=== PATIENT | female | born 1945 | race Caucasian/White ===

== ENCOUNTER → 2016-09-15 | Outpatient (CLI) | payer OTHER | LOC: FIMAGING 11:44 | PROVIDERS: ATTEND Surgery | DX: E21.0 Primary hyperparathyroidism (principal); D49.7 Neoplasm of unspecified behavior of endocrine glands and other parts of nervous system | CPT/HCPCS: 78070; A9500 ==

== ENCOUNTER → 2016-09-27 | Outpatient (CLI) | payer OTHER | LOC: FIMAGING 07:29 | PROVIDERS: ATTEND Surgery | PROC: CW5 Nuclear Medicine, Anatomical Regions, Nonimaging Nuclear Medicine Probe (ICD-10-PCS; principal; 2016-09-27) | DX: Z01.818 Encounter for other preprocedural examination (principal); D35.1 Benign neoplasm of parathyroid gland; E21.0 Primary hyperparathyroidism | CPT/HCPCS: 78808; A9500 ==